=== PATIENT | male | born 1980 | race Two or more races ===

== ENCOUNTER 2016-06-14 10:44 | Emergency (ER) | payer SELFPAY ==
[~2016-06-14] VITALS: Ht 160 cm; Wt 83.9 kg
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
[2016-06-14] MEDS ORDERED: LIDOCAINE 1%-EPI 1:100,000 50 ML VIAL IJ ONE (11:00)
[2016-06-14] MEDS ORDERED: TDAP [DIPH/PERTUSSIS/TET] 0.5 ML VIAL IM ONE ×2 (11:00→11:01)
[2016-06-14] MEDS ORDERED: CEPHALEXIN MONOHYDRATE 500 MG CAPSULE PO ONE ×2 (12:00→12:01)
[2016-06-14 12:29] VITALS: BP 122/64
== END 2016-06-14 12:30 | disposition home or self-care (01) ==
LOC: ER 10:48
DX: S51.812A Laceration without foreign body of left forearm, initial encounter (principal); W26.0XXA Contact with knife, initial encounter; Y93.89 Activity, other specified; Y92.89 Other specified places as the place of occurrence of the external cause; Y99.9 Unspecified external cause status
CPT/HCPCS: 90715; A4606; A6402; J3490; Z7610

== ENCOUNTER → 2016-06-23 | Emergency (ER) | payer SELFPAY ==
[~2016-06-23] VITALS: Ht 154.9 cm; Wt 83.9 kg
[2016-06-23 10:49] VITALS: BP 152/95
== END | disposition home or self-care (01) ==
LOC: ER 11:15
DX: S51.812A Laceration without foreign body of left forearm, initial encounter (principal); X58.XXXA Exposure to other specified factors, initial encounter; Y93.89 Activity, other specified; Y92.89 Other specified places as the place of occurrence of the external cause; Y99.9 Unspecified external cause status
CPT/HCPCS: 99282; A4606; Z7610